=== PATIENT | male | born 1945 | race Caucasian/White ===

== ENCOUNTER 2018-04-21 12:02 | Day surgery (SDC) | payer OTHER ==
[~2018-04-21] VITALS: Ht 170.2 cm; Wt 89.3 kg
[~2018-04-21 12:02] MED LIST: ALPR-475 PO; APIX5TAB PO; ATOR40TA78 PO; BENA10TA4 PO; FINA5TAB4 PO; HYDR-3307 PO; TAMS0.4C2 PO; VISIPAQUE 270 MG/ML, 50ML BOTTLE ONE
[2018-04-21] MEDS ORDERED: D5%-0.45% NACL 1,000 ML IV SCH (12:39)
[2018-04-21 12:41] VITALS: BP 131/77
[2018-04-21 13:07] LABS: BASOPHILS # (AUTO) 0.05 x10^3/uL (0-0.1); BASOPHILS % (AUTO) 1 % (0-1); EOSINOPHILS # (AUTO) 0.11 x10^3/uL (0-0.4); EOSINOPHILS % (AUTO) 2 % (1-7); LYMPHOCYTES % (AUTO) 38 % (22-44); MD NO; MEAN CORPUSCULAR HEMOGLOBIN 33.4 pg (27.5-34.5); MEAN CORPUSCULAR HGB CONC 33.3 g/dL (33.2-36.2); MEAN CORPUSCULAR VOLUME 100.1 fL (81-97); MEAN PLATELET VOLUME 8.1 fL (7.4-10.4); MONOCYTES # (AUTO) 0.46 x10^3/uL (0.2-0.8); MONOCYTES % (AUTO) 8 % (2-9); NEUTROPHILS % (AUTO) 52 % (42-75); PLATELET COUNT 202 x10^3/uL (130-400); RED BLOOD COUNT 4.25 x10^6/uL (4.38-5.82); RED CELL DISTRIBUTION WIDTH 16.6 % (9.4-14.8)
[2018-04-21 13:20] LABS: ANION GAP 8 mmol/L (5-15); CALCIUM 8.8 mg/dL (8.5-10.1); CHLORIDE 107 mmol/L (98-107)
[2018-04-21] MEDS ORDERED: FENTANYL PF 100 MCG/2ML ONE (13:58)
[2018-04-21] MEDS ORDERED: PROTAMINE SULFATE 10 MG/ML, 25ML ONE (13:59)
[2018-04-21] MEDS ORDERED: FLUMAZENIL 0.1 MG/1 ML, 5ML ONE (13:59)
[2018-04-21] MEDS ORDERED: MIDAZOLAM 1 MG/ML, 5ML ONE (13:59)
[2018-04-21] MEDS ORDERED: NITROGLYCERIN 5 MG/ML, 10ML ONE (13:59)
[2018-04-21] MEDS ORDERED: NALOXONE 1 MG/ML, 2ML ONE (13:59)
[2018-04-21] MEDS ORDERED: HEPARIN 1,000 UNITS/ML, 10ML ONE (13:59)
[2018-04-21] MEDS ORDERED: SODIUM CHLORIDE 0.9% 1,000 ML IV SCH (15:28)
[2018-04-21] MEDS ORDERED: HYDROcodone/APAP 10/325 MG TABLET PO PRN (15:30)
[2018-05-18] MEDS ORDERED: FURO20TA3 PO (10:02)
== END 2018-04-21 18:05 | disposition home or self-care (01) ==
LOC: OUT 12:02 → UNDOADMOB 15:28 → ORIP 15:28 → UNDODISOB 04-22 17:55
PROVIDERS: ATTEND Surgery
DX: I70.223 Atherosclerosis of native arteries of extremities with rest pain, bilateral legs (principal); F41.9 Anxiety disorder, unspecified; I10 Essential (primary) hypertension; E78.5 Hyperlipidemia, unspecified; Z79.899 Other long term (current) drug therapy; Z98.49 Cataract extraction status, unspecified eye
CPT/HCPCS: 36200; 36415; 75625; 75716; 80048; 85025; 93970; 99156; 99157; C1751; C1894; J2250; J3010; Q9966; 75630; G0378; J1644; J2720; J2310